=== PATIENT | female | born 1960 | race Two or more races ===

== ENCOUNTER 2019-01-13 14:01 | Emergency (ER) ==
[2019-01-13] MEDS ORDERED: PREDNISONE PO STA (14:16)
[2019-01-13] MEDS ORDERED: DUONEB NEB STA (14:16)
[2019-01-13] MEDS ORDERED: ZITHROMAX PO STA (14:17)
[2019-01-13 14:20] VITALS: BP 129/72; TEMP 98.3; BMI 34.9
--- NOTE | 2019-01-13 15:13 | DI ---
EXAM: CHEST FRONTAL AND LATERAL VIEWS HISTORY: Cough. COMPARISON: None FINDINGS: Heart size and mediastinal contour within normal limits. No acute infiltrates. Becka l vascularity with no pleural fluid or pneumothorax. The bony thorax has no acute finding. IMPRESSION: No acute process.
--- NOTE | 2019-01-13 15:26 | ED.PDOC ---
General ED Provider: Dr. YELENA VILLARREAL Chief Complaint: Fever Stated Complaint: flu like symptoms Time Seen by Physician: 14:14 Mode of Arrival: Walk-In Information Source: Patient Exam Limitations: No limitations Primary Care Provider: TONI LOWE Nursing and Triage Documentation Reviewed and Agree: Yes Does patient meet sepsis criteria?: No System Inflammatory Response Syndrome: Not Applicable Sepsis Protocol: For patient's 13 years and over: Temp is 96.8 and below OR 101 and greater Pulse >90 BPM Resp >20/minute Acutely Altered Mental Status Are patient's symptoms suggestive of a new infection, such as: -Pneumonia -Skin, Soft Tissue -Endocarditis -UTI -Bone, Joint Infection -Implantable Device -Acute Abdominal Infection -Wound Infection -Meningitis -Blood Stream Catheter Infection -Unknown Respiratory Complaint Exam - Respiratory Complaint/Exam Symptoms Are: Still present Timing: Intermittent Initial Severity: Moderate Current Severity: Mild Location: Nose, Throat, Chest Character: Reports: Non-productive cough, Dry cough Aggravating: Reports: URI Alleviating: Reports: None Associated Signs and Symptoms: Reports: Fever, Chills, URI, Nasal congestion. Denies: Rapid breathing, Dyspnea, Chest pain, Pleuritic chest pain, Wheezing, Hemoptysis, Dizziness, Calf pain, Calf swelling, Edema, Hoarseness, Sinus discomfort, Vomiting, Sore throat, Weight loss, Decreased oral intake, Increased thirst, Increased appetite, Increased urination Related History: Reports: Similar episode History of Healthcare-Acquired Pneumonia: No Related Surgical History: Reports: None Pulmonary Embolism Risk Factors: None Cardiac Risk Factors: Reports: None Pseudomonas Risk Factors: Reports: None Tuberculosis Risk Factors: Reports: None Status Asthmaticus Risk Factors: Reports: None Home Oxygen Use: No Recent Stress Test: No Recent Echo/LV Function: No Current Antibiotic Use: No Current Asthma Medication Use: No Respiratory Distress: None Inadequate Respiratory Effort: No Dysphagia Present: No Stridor Present: No JVD Present: No Accessory Muscle Use: No Retractions: Not Present Diminished Breath Sounds: No Sinus Tenderness: None Grunting Respirations: No Kussmaul Respirations: No Differential Diagnoses: Pneumonia, Bronchitis, Influenza Review of Systems - Review Of Systems Constitutional: Reports: Fever, Malaise, Loss of appetite Eyes: Reports: No symptoms Ears, Nose, Mouth, Throat: Reports: No symptoms Respiratory: Reports: Cough Cardiac: Reports: No symptoms GI: Reports: No symptoms : Reports: No symptoms Musculoskeletal: Reports: No symptoms Skin: Reports: No symptoms Neurological: Reports: No symptoms Endocrine: Reports: No symptoms Hematologic/Lymphatic: Reports: No symptoms All Other Systems: Reviewed and Negative Past Medical History - Past Medical History Previously Healthy: Yes Endocrine: Reports: None Cardiovascular: Reports: Hypertension Respiratory: Reports: None Hematological: Reports: None Gastrointestinal: Reports: None Genitourinary: Reports: None Neuro/Psych: Reports: None Musculoskeletal: Reports: None Cancer: Reports: None Last Menstrual Period: unknown - Surgical History General Surgical History: Reports: None - Family History Family History: Reports: None - Social History Smoking Status: Never smoker Hx Substance Use: No Alcohol Screening: None Physical Exam - Physical Exam Appearance: Well-appearing, No pain distress, Well-nourished Eyes: GERBER, EOMI, Conjunctiva clear ENT: Erythema Respiratory: Rhonchi Cardiovascular: RRR, Pulses normal, No rub, No murmur GI/: Soft, Nontender, No masses, Bowel sounds normal, No Organomegaly Musculoskeletal: Normal strength, ROM intact, No edema, No calf tenderness Skin: Warm, Dry, Normal color Neurological: Sensation intact, Motor intact, Reflexes intact, Cranial nerves intact, Alert, Oriented Psychiatric: Affect appropriate, Mood appropriate Interpretation - Radiology Interpretation Radiology Interpretation By: ED Physician Radiology Results: No acute changes Exam Interpreted: CXR Critical Care Note - Critical Care Note Total Time (mins): 0 Course - Course Orders, Labs, Meds: Lab Review 01/13/19 14:45 Influ A Molecular Assay Positive by naat H Influ B Molecular Assay Negative by naat Orders Category Date Time Status NEBULIZER TREATMENT Stat CARDIO 01/13/19 14:16 Ordered FLU A/B MOLECULAR Stat LAB 01/13/19 14:45 Completed MOLECULAR GROUP A STREP Stat LAB 01/13/19 14:45 Completed Azithromycin [Zithromax] MEDS 01/13/19 14:17 Discontinued 1,000 mg PO ONCE STA Ipratropium/Albuterol Neb [Duoneb] MEDS 01/13/19 14:16 Discontinued 1 vial NEB ONCE STA Prednisone MEDS 01/13/19 14:16 Discontinued 40 mg PO ONCE STA CHEST, 2 VIEWS PA & LAT Stat RADS 01/13/19 14:16 Completed Medications Discontinued Medications Generic Name Dose Route Start Last Admin Trade Name Freq PRN Reason Stop Dose Admin Albuterol/Ipratropium 1 vial 01/13/19 14:16 Duoneb NEB 01/13/19 14:17 ONCE STA Azithromycin 1,000 mg 01/13/19 14:17 01/13/19 14:40 Zithromax PO 01/13/19 14:18 1,000 mg ONCE STA Administration Prednisone 40 mg 01/13/19 14:16 01/13/19 14:41 Prednisone PO 01/13/19 14:17 40 mg ONCE STA Administration Vital Signs: Temp Pulse Resp BP Pulse Ox 01/13/19 14:04 98.3 F 94 H 20 129/72 94 L Departure - Departure Time of Disposition: 15:26 Disposition: HOME SELF-CARE Discharge Problem: Fever, Influenza A Instructions: Acute Bronchitis (ED), Influenza (ED) Condition: Good Pt referred to PMD for follow-up: Yes IPMP verified?: No Additional Instructions: Please call your Family Physician as soon as possible to schedule a follow-up appointment. Allergies/Adverse Reactions: Allergies promethazine [From Phenergan] Adverse Reaction (Verified 01/13/19 14:20) cough meds Adverse Reaction (Uncoded 01/13/19 14:20) Home Medications: Ambulatory Orders Aspirin [Aspir-Low] 81 mg PO DAILY 01/13/19 Enalapril Maleate [Vasotec] 20 mg PO BID 01/13/19 Ibuprofen 800 mg PO Q6HR PRN 01/13/19 Metoprolol Succinate [Toprol Xl] 25 mg PO DAILY 01/13/19 Ranitidine HCl [Zantac] 300 mg PO QDAC PRN 01/13/19
== END 2019-01-13 16:05 | disposition home or self-care (01) ==
LOC: ED 14:01
DX: J11.1 Influenza due to unidentified influenza virus with other respiratory manifestations (principal)
CPT/HCPCS: 87502; 87651; 94640; 99283

== ENCOUNTER 2019-02-11 21:17 | Emergency (ER) ==
[2019-02-11 21:26] VITALS: BP 178/95; TEMP 98; BMI 34.8
[2019-02-11] MEDS ORDERED: SODIUM CHLORIDE 1,000 ML IV STA (21:40)
[2019-02-11] MEDS ORDERED: MORPHINE 2 MG/ML SYRINGE IVP PRN (21:41)
[2019-02-11] MEDS ORDERED: ZOFRAN 4 MG/2 ML IVP STA (21:41)
--- NOTE | 2019-02-11 23:27 | CT ---
EXAM: CT of the abdomen and pelvis with and without IV contrast. HISTORY: Periumbilical pain. Vomiting. PROCEDURE: Contiguous axial CT images of the abdomen and pelvis with and without IV contrast with co rola and sagittal reformats. FINDINGS: There is diffuse fatty infiltration of the liver. There are gallstones in the gallbladder. The gallbladder is within normal limits in size. The gallbladder wall is not well visualized by CT . The pancreas, spleen, adrenal glands and right kidney are normal in appearance. There is a small cyst in the left kidney. The abdominal aorta is within normal limits in diameter. The appendix is n ormal in appearance. There is diverticulosis of the colon with no evidence of diverticulitis. No fr ee fluid or free air in the abdomen or pelvis. The bladder is minimally filled and normal in appeara nce. The uterus is unremarkable. There is a 9.2 x 7.1 cm complex cyst with peripheral calcification in the left adnexa. There are degenerative changes in the spine. Impression: Cholelithiasis as described. Recommend ultrasound for further evaluation. 9.2 x 7.1 cm complex left adnexal cyst. Recommend pelvic ultrasound for further evaluation. Diverticulosis of the colon. Diffuse fatty infiltration of the liver.
--- NOTE | 2019-02-11 23:32 | ED.PDOC ---
General ED Provider: Dr. JASON PEREZ-ER Chief Complaint: Nausea/Vomiting Stated Complaint: i ate and then got sick Time Seen by Physician: 21:20 Mode of Arrival: Walk-In Information Source: Patient Exam Limitations: No limitations Primary Care Provider: TONI LOWE Nursing and Triage Documentation Reviewed and Agree: Yes Does patient meet sepsis criteria?: No System Inflammatory Response Syndrome: Not Applicable Sepsis Protocol: For patient's 13 years and over: Temp is 96.8 and below OR 101 and greater Pulse >90 BPM Resp >20/minute Acutely Altered Mental Status Are patient's symptoms suggestive of a new infection, such as: -Pneumonia -Skin, Soft Tissue -Endocarditis -UTI -Bone, Joint Infection -Implantable Device -Acute Abdominal Infection -Wound Infection -Meningitis -Blood Stream Catheter Infection -Unknown GI Complaint Exam - Abdominal Pain Complaint/Exam Onset: Sudden Duration: 2 hrs Symptoms Are: Still present Timing: Constant Initial Severity: Mild Current Severity: Mild Location of Pain: Discrete, RLQ Radiates To: Reports: Back Character: Reports: Dull, Aching Aggravating: Reports: None Alleviating: Reports: None Associated Signs and Symptoms: Reports: Nausea, Vomiting. Denies: Diaphoresis, Fever, Cough, Chest pain, Dizziness, Back pain Patient Rh Status: Unknown Abdominal Findings: Present: None Differential Diagnoses: Appendicitis, Bowel Obstruction, Constipation, GB Quality Indicator For Non-Traumatic Chest Pain/Syncope: EKG Performed Review of Systems - Review Of Systems Constitutional: Reports: No symptoms Eyes: Reports: No symptoms Ears, Nose, Mouth, Throat: Reports: No symptoms Respiratory: Reports: No symptoms Cardiac: Reports: No symptoms GI: Reports: Abdominal pain, Nausea, Vomiting : Reports: No symptoms Musculoskeletal: Reports: No symptoms Skin: Reports: No symptoms Neurological: Reports: No symptoms Endocrine: Reports: No symptoms Hematologic/Lymphatic: Reports: No symptoms All Other Systems: Reviewed and Negative Past Medical History - Past Medical History Previously Healthy: Yes Endocrine: Reports: None Cardiovascular: Reports: Hypertension Respiratory: Reports: None Hematological: Reports: None Gastrointestinal: Reports: None Genitourinary: Reports: None Neuro/Psych: Reports: None Musculoskeletal: Reports: None Cancer: Reports: None Last Menstrual Period: A FEW YEARS AGO - Surgical History General Surgical History: Reports: None - Family History Family History: Reports: None - Social History Smoking Status: Never smoker Hx Substance Use: No Alcohol Screening: Occasionally - Immunizations Tetanus Shot up to Date: Yes Physical Exam - Physical Exam Appearance: Well-appearing, No pain distress, Well-nourished Pain Distress: Mild Eyes: GERBER, EOMI, Conjunctiva clear ENT: Ears normal, Nose normal, Oropharynx normal Neck: Supple Respiratory: Airway patent, Breath sounds clear, Breath sounds equal, Respirations nonlabored Cardiovascular: RRR GI/: Soft Musculoskeletal: Normal strength Skin: Warm, Dry, Normal color Neurological: Sensation intact, Motor intact, Reflexes intact, Cranial nerves intact, Alert, Oriented Psychiatric: Affect appropriate, Mood appropriate Interpretation - Radiology Interpretation Radiology Interpretation By: Radiologist Radiology Results: Positive Exam Interpreted: CT Scan - EKG Interpretation Time of EKG #1: 23:32 Rate: Normal Rhythm: Sinus Ectopy: None [place]: NL ST Segment: Normal Interpretation: nsr Re-Evaluation - Re-Evaluation Time of Re-Evaluation: 23:32 Status: Improved Vital Signs Stable: Yes Pain Level: 0 Appearance: NAD Lungs: Clear Skin: Warm and Dry Neuro: Alert and Oriented X3 CV: RRR Critical Care Note - Critical Care Note Total Time (mins): 0 Course - Course Hematology/Chemistry: 02/11/19 21:35 02/11/19 21:35 Orders, Labs, Meds: Lab Review 02/11/19 02/11/19 02/11/19 21:35 21:35 21:35 WBC 10.85 H RBC 4.55 Hgb 14.0 Hct 40.8 MCV 89.7 MCH 30.8 MCHC 34.3 RDW Coeff of [place]on[place] 13.1 Plt Count 219 Immature Gran % (Auto) 0.6 Neut % (Auto) 71.3 Lymph % (Auto) 18.4 [place] % (Auto) 8.2 Eos % (Auto) 1.1 Baso % (Auto) 0.4 Immature Gran # (Auto) 0.1 Neut # (Auto) 7.7 H Lymph # (Auto) 2.0 [place] # (Auto) 0.9 Eos # (Auto) 0.1 Baso # (Auto) 0.0 ESR 16 Sodium 144.0 Potassium 3.63 Chloride 105.5 Carbon Dioxide 24.9 Anion Gap 17.23 BUN 16.2 Creatinine 0.85 Estimated GFR (MDRD) 69.00 BUN/Creatinine Ratio 19.05 Glucose 200.1 H Calcium 10.49 H Total Bilirubin 0.55 AST 32.6 ALT 43.3 H Alkaline Phosphatase 59.8 Total Creatine Kinase 38.7 Troponin I < 0.012 Total Protein 7.90 Albumin 5.01 H Globulin 2.89 Albumin/Globulin Ratio 1.73 Amylase 296.5 H Lipase 93.6 Urine Color Yellow Urine Clarity Hazy Urine pH 5.0 Ur Specific [place] >=1.030 Urine Protein 2+ Urine Glucose (UA) Negative Urine Ketones Trace Urine Blood 2+ Urine Nitrite Negative Urine Bilirubin Negative Urine Urobilinogen 0.2 Ur Leukocyte Esterase Negative Urine Microscopic RBC 2-5 Urine Microscopic WBC 0-2 Ur Squamous Epith Cells 5-10 Calcium Oxalate Crystal 1+ Urine Bacteria 1+ Hyaline Casts 0-2 Orders Category Date Time Status EKG-(ED ONLY) Stat CARDIO 02/11/19 21:32 Completed NPO REMINDER: IMAGING ONCE CARE 02/11/19 21:42 Active ED IV/MEDIPORT/POWERPORT .ONCE EMERGENCY 02/11/19 21:32 Active ED IV/MEDIPORT/POWERPORT .ONCE EMERGENCY 02/11/19 21:40 Active AMYLASE Stat LAB 02/11/19 21:35 Completed CBC W/ AUTO DIFF Stat LAB 02/11/19 21:35 Completed COMPREHENSIVE METABOLIC PANEL Stat LAB 02/11/19 21:35 Completed CREATINE KINASE Stat LAB 02/11/19 21:35 Completed ESR Stat LAB 02/11/19 21:35 Completed LIPASE Stat LAB 02/11/19 21:35 Completed TROPONIN I Stat LAB 02/11/19 21:35 Completed URINALYSIS C & S IF INDICATED Stat LAB 02/11/19 21:35 Completed URINE CULTURE Stat LAB 02/11/19 21:49 Results 0.9 % Sodium Chloride [Saline Flush] MEDS 02/11/19 21:32 Discontinued 1 syr IVF PRN PRN 0.9 % Sodium Chloride [Saline Flush] MEDS 02/11/19 21:40 Discontinued 1 syr IVF PRN PRN Morphine Sulfate [Morphine 2 mg/ml Syringe] MEDS 02/11/19 21:41 Discontinued 2 mg IVP Q4H PRN Ondansetron HCl/Pf [Zofran 4 mg/2 ml] MEDS 02/11/19 21:41 Discontinued 4 mg IVP ONCE STA Sodium Chloride 0.9% [Sodium Chloride] 1,000 ml MEDS 02/11/19 21:[address] ABDOMEN/PELVIS W/WO CONTRAS Stat RADS 02/11/19 21:41 Completed Medications Discontinued Medications Generic Name Dose Route Start Last Admin Trade Name Freq PRN Reason Stop Dose Admin Sodium Chloride 1,000 mls @ 1,000 mls/hr 02/11/19 21:40 02/11/19 22:07 Sodium Chloride IV 02/11/19 22:39 1,000 mls/hr BOLUS STA Administration Morphine Sulfate 2 mg 02/11/19 21:41 Morphine 2 Mg/Ml Syringe IVP Q4H PRN Abdominal Pain Ondansetron HCl 4 mg 02/11/19 21:41 02/11/19 22:08 Zofran 4 Mg/2 Ml IVP 02/11/19 21:42 4 mg ONCE STA Administration Sodium Chloride 1 syr 02/11/19 21:32 02/11/19 22:08 Saline Flush IVF 1 syr PRN PRN Administration To flush IV Sodium Chloride 1 syr 02/11/19 21:40 Saline Flush IVF PRN PRN To flush IV Vital Signs: Temp Pulse Resp BP Pulse Ox 02/11/19 21:18 98 F 87 20 178/95 H 97 Departure - Departure Time of Disposition: 23:32 Disposition: HOME SELF-CARE Discharge Problem: Cholelithiasis Qualifiers: Cholelithiasis location: gallbladder Cholecystitis presence: without cholecystitis Biliary obstruction: with biliary obstruction Qualified Code(s): K80.21 - Calculus of gallbladder without cholecystitis with obstruction Ovarian cyst Qualifiers: Laterality: left Qualified Code(s): N83.202 - Unspecified ovarian cyst, left side Instructions: Gallstones (ED) Condition: Good Pt referred to PMD for follow-up: Yes IPMP verified?: No Additional Instructions: low fat diet---zofran 4mg q 4hrs prn naUsea #6---see your regular doctor and get u/s of the gb and also pelvis to eval cyst---consider seeing surgeon as well as element setter Allergies/Adverse Reactions: Allergies naproxen [From Aleve] Adverse Reaction (Verified 02/11/19 21:28) Unknown promethazine [From Phenergan] Adverse Reaction (Verified 02/11/19 21:27) Vomiting cough meds Adverse Reaction (Uncoded 02/11/19 21:27) Vomiting Home Medications: Ambulatory Orders Aspirin [Aspir-Low] 81 mg PO DAILY 01/13/19 Enalapril Maleate [Vasotec] 20 mg PO BID 01/13/19 Ibuprofen 800 mg PO Q8H PRN 01/13/19 Metoprolol Succinate [Toprol Xl] 25 mg PO DAILY 01/13/19 Ranitidine HCl [Zantac] 300 mg PO QDAC PRN 01/13/19 Fluticasone Propionate [Flonase] 2 spray NS DAILY 02/11/19 Loratadine [Claritin] 10 mg PO DAILY PRN 02/11/19 Transfer Form Completed: No Disposition Discussed With: Patient
== END 2019-02-11 23:51 | disposition home or self-care (01) ==
LOC: ED 21:17
DX: K80.21 Calculus of gallbladder without cholecystitis with obstruction (principal); N83.202 Unspecified ovarian cyst, left side; I10 Essential (primary) hypertension
CPT/HCPCS: 36415; 80053; 81001; 82150; 82550; 83690; 84484; 85025; 85651; 87086; 93005; 93010; 96361; 96374; 99283

== ENCOUNTER 2019-03-02 09:15 | Outpatient (CLI) ==
--- NOTE | 2019-03-02 09:55 | DI ---
EXAM: Right wrist three-view HISTORY: Injury COMPARISON: None FINDINGS: The bones are normal. The joints are normal. No focal soft tissue abnormality. IMPERSSION: Normal examination.
--- NOTE | 2019-03-03 11:44 | MAMMO ---
EXAM: Digital screening mammogram with tomosynthesis HISTORY: Screening COMPARISON: None FINDINGS: Digital MLO and CC views of the right and left breast were performed. Tomosynthesis was performed. Computer aided detection utilized. There are scattered fibroglandular densities. There is no evidence for mass, asymmetry, distortion, or suspicious calcifications in either breast. IMPRESSION: 1. No evidence of malignancy in the right or left breast. 2. Annual screening mammogram is recommended in one year. BIRADS category 1, negative examination
== END 2019-03-02 09:16 | disposition home or self-care (01) ==
LOC: RAD 09:15
PROVIDERS: ATTEND Nurse Practitioner Family
DX: Z12.31 Encounter for screening mammogram for malignant neoplasm of breast (principal); S69.91XA Unspecified injury of right wrist, hand and finger(s), initial encounter

== ENCOUNTER 2019-03-06 09:14 | Outpatient (CLI) ==
--- NOTE | 2019-03-06 09:57 | US ---
EXAM: Right upper quadrant abdominal ultrasound. History: Gallstones. Comparison: CT abdomen pelvis 02/11/2019 Technique: Multiple sonographic images through the abdomen were obtained. Color duplex Doppler was used to interrogate vascular flow. Findings: The liver is diffusely echogenic. No focal liver lesions. There is antegrade flow within the main p ortal vein. Visualized pancreas demonstrates no abnormality. No abdominal ascites. Limited visuali zation of the right kidney demonstrates no evidence for hydronephrosis. Cholelithiasis. Gallbladder wall is mildly thickened. Common bile duct measures 0.4 cm in caliber. Impression: 1. Cholelithiasis and mild gallbladder wall thickening. 2. Hepatic steatosis
== END 2019-03-06 09:15 | disposition home or self-care (01) ==
LOC: RAD 09:14
PROVIDERS: ATTEND Nurse Practitioner Family
DX: K80.20 Calculus of gallbladder without cholecystitis without obstruction (principal)